=== PATIENT | female | born 1985 | race Hispanic/Latino ===

== ENCOUNTER 2016-07-05 14:01 | Emergency (ER) | payer OTHER ==
[~2016-07-05] VITALS: Ht 154.9 cm; Wt 63.0 kg
[2016-07-05] MEDS ORDERED: MELA0.02 PO (14:18)
[2016-07-05] MEDS ORDERED: CEFD300CAP FT (15:05)
[2016-07-05 15:32] VITALS: BP 123/76
== END 2016-07-05 15:33 | disposition home or self-care (01) ==
LOC: M ED 15:29
DX: J02.0 Streptococcal pharyngitis (principal); Z88.0 Allergy status to penicillin